=== PATIENT | male | born 2000 | race Caucasian/White ===

== ENCOUNTER → 2023-09-11 09:56 | Outpatient (REF) | payer BC, SELFPAY | LOC: HWRAD 09:56 | PROVIDERS: ATTENDING PHYSICIAN Family Medicine | DX: R61 Generalized hyperhidrosis (principal) | CPT/HCPCS: 76700 ==

== ENCOUNTER → 2023-11-12 16:38 | Outpatient (REF) | payer BC, SELFPAY | LOC: HWRAD 16:38 | PROVIDERS: ATTENDING PHYSICIAN Family Medicine | DX: M25.561 Pain in right knee (principal); M25.562 Pain in left knee; G89.29 Other chronic pain; R61 Generalized hyperhidrosis | CPT/HCPCS: 71046; 73564 ==

== ENCOUNTER → 2023-12-08 18:06 | Outpatient (REF) | payer BC, SELFPAY | LOC: MRI 3T 18:06 | PROVIDERS: ATTENDING PHYSICIAN Nurse Practitioner Family; FAMILY PHYSICIAN Family Medicine | DX: I87.8 Other specified disorders of veins (principal); G43.419 Hemiplegic migraine, intractable, without status migrainosus; H53.9 Unspecified visual disturbance | CPT/HCPCS: 70544; 70553; A9575 ==

== ENCOUNTER 2025-01-25 00:38 | Emergency (ER) | payer BC, SELFPAY ==
[2025-01-25 00:42] VITALS: BMI 23.9
[2025-01-25 00:43] VITALS: BP 135/84
[2025-01-25 01:00] VITALS: BP 145/100
[2025-01-25] MEDS: ZOFRAN 4 MG IV (01:01)
[2025-01-25] MEDS: DILAUDID 1 MG IV (01:02)
[2025-01-25 01:17] LABS: ALT (SGPT) 33 U/L (0-50); AST (SGOT) 36 U/L (17-59); Albumin 4.9 g/dl (3.5-5.0); Alkaline Phosphatase 66 U/L (38-126); Blood Urea Nitrogen 15 mg/dl (9-20); Calcium 9.9 mg/dl (8.4-10.2); Carbon Dioxide 27 mmol/L (22-30); Chloride 104 mmol/L (98-107); Estimated Creatinine Clearance 100 ml/min; Glucose 106 mg/dl (70-99); Lipase 94 U/L (23-300); Potassium 4.3 mmol/L (3.5-5.1); Sodium 140 mmol/L (135-145); Total Protein 7.5 g/dl (6.3-8.2); eGFR > 60.00
[2025-01-25 01:21] LABS: Hematocrit 41.2 % (39.0-52.0); Hemoglobin 14.2 g/dL (13.0-18.0); Mean Corp Hgb Conc. 34.5 g/dL (33.0-37.0); Mean Corpuscular Volume 85.5 fL (80.0-94.0); Nucleated Red Blood Cells % 0 % (-); Platelet Count 300 10^3/uL (130-400); Red Cell Dist. Width 12.5 % (11.5-14.5)
[2025-01-25 01:25] LABS: Urine Character Clear (Clear)
[2025-01-25 02:20] VITALS: BP 117/74
--- NOTE | 2025-01-25 02:46 | ED.GENMED ---
History of Present Illness
General
Chief Complaint: Abdominal Pain
Source: patient
Exam Limitations: none
Time Seen by Provider: 01/25/25 01:49
Nursing documentation reviewed up to this point in time: agreed with
History of Present Illness
History of Present Illness:
Note:
CHIEF COMPLAINT(S)
Right-sided abdominal pain.
HISTORY OF PRESENT ILLNESS
The patient is a 24-year-old male who presented with right-sided abdominal pain, which began around 11:30 AM to 12:00 PM. He reports the pain is localized and severe. The patient states, 'Pretty bad stomach pain on the right side.' He has a history
of kidney stones but has never passed one before. It appears the current stone has moved into the bladder, alleviating most of the pain, but he was advised that the stone could be passed by urination. He understands that increasing fluid intake can
aid in the process. The patient is informed to monitor for symptoms such as increased pain and difficulty urinating, which might indicate the stone is stuck. He inquired about pain medication and will be prescribed Diclofenac for pain management.
The patient is advised to use a urine strainer to catch the stone and monitor for any changes.
PAST MEDICAL HISTORY
History of kidney stones.
ADDITIONAL HISTORY OBTAINED FROM SOURCES OTHER THAN THE PATIENT
The patients family member has chronic issues with kidney stones as well.
SOCIAL HISTORY
The patient denies any previous episodes of passing a kidney stone and mentions familial occurrences.
PHYSICAL EXAM
General: Alert, no acute distress.
Skin: Warm, dry.
Head: Normocephalic, atraumatic.
Neck: Supple, trachea midline.
Eyes, Ears, Nose, Mouth, and Throat: Oral mucosa moist.
Cardiovascular: Normal peripheral perfusion, no edema.
Respiratory: Respirations are non-labored.
Gastrointestinal: Abdomen nondistended.
Back: Normal range of motion, normal alignment.
Musculoskeletal: Normal range of motion, normal strength.
Neurological: Alert and oriented to person, place, time, and situation, no focal neurological deficit observed.
Psychiatric: Cooperative, appropriate mood, and affect.
PROBLEM LIST
Acute Problems: Right-sided abdominal pain likely due to kidney stones.
PLAN
1. Prescribe Diclofenac for pain management.
2. Advise increased fluid intake to facilitate passing the stone.
3. Monitor urine using a strainer to observe when the stone passes.
4. Patient to return to ER if there is increased pain or difficulty urinating.
DIFFERENTIAL DIAGNOSIS
The Differential Diagnosis includes, in no particular order and is not limited to:
1. Kidney stone (Nephrolithiasis)
2. Appendicitis
3. Ureteral stone
4. Pyelonephritis
5. Gallstones (Cholelithiasis)
6. Hepatitis
7. Abdominal aortic aneurysm
8. Ovarian cyst (less likely due to gender)
9. Gastroenteritis
10. Constipation
Disposition:
SUMMARY OF ENCOUNTER
A 24-year-old male presented to the emergency department with right flank pain. A CT scan showed a 2-3 millimeter stone in the bladder, consistent with his symptoms. The patient has a family history of kidney stones. He was managed conservatively
since the stone is already in the bladder, which can be managed with increased fluid intake and pain management. The patient was comfortable at discharge after receiving a dose of tamsulosin (Flomax) and will continue pain management with a
prescription for diclofenac (Voltaren).
PLAN
1. Prescribe diclofenac for pain management.
2. Encourage increased fluid intake to help pass the kidney stone.
3. Advise monitoring urine to catch the stone using a urine strainer.
4. Instruct to return to the emergency department if increased pain or difficulty urinating occurs.
PATIENT EDUCATION AND COUNSELING
The patient was educated regarding the nature of kidney stones and how increased fluid intake aids in their passage. He was instructed to monitor for any changes in symptoms, such as increased pain or difficulty urinating, which could indicate the
stone is obstructed. He was also advised on the importance of using a urine strainer to catch and identify the stone when it passes.
FOLLOW-UP INSTRUCTIONS
Please follow up with the primary care provider as needed, and return to the emergency department if there is increased pain or difficulty urinating.
MEDICATION RECONCILIATION
- Administered during visit: Tamsulosin (Flomax), a dose provided in the ED.
- Prescribed upon discharge: Diclofenac (Voltaren).
MEDICAL DECISION MAKING
- Complexity of Data Reviewed: Chronic conditions affecting care include a history of kidney stones. The differential diagnosis considered includes kidney stone (nephrolithiasis), appendicitis, ureteral stone, pyelonephritis, gallstones
(cholelithiasis), hepatitis, and others.
- Data:
Category 1
The independent interpretation of the CT scan revealed a 2-3 millimeter kidney stone located in the bladder.
- Risk:
Prescription medication was prescribed for pain management. Consideration of admission/observation was assessed, but the patient was deemed safe for outpatient management with close follow-up. Re-evaluation and stability confirmed safety for
discharge.
DIAGNOSIS
- N20.1 Nephrolithiasis, right flank pain due to kidney stone.
- Z87.442 Family history of kidney stones.
Past History
Past History
ED Past Medical History: Other ([place] spotted fever) and Other (Migraines)
ED Past Surgical History: None
Social History
Tobacco: Non-smoker
Alcohol: None
Drug: None
Personal: Single
Living: with family
Employment: Employed ([employer])
Family History
Family History: Other; Negative Sudden
Course
Orders/Labs/Results
Orders:
Orders
01/25/25 00:56
Complete Blood Count/With Diff Urgent
Comprehensive Metabolic Panel Urgent
Lipase Urgent
01/25/25 00:57
HYDROmorphone [Dilaudid] 1 mg IV NOW STA
Ondansetron Injectable [Zofran] 4 mg IV NOW STA
01/25/25 01:11
Urinalysis Reflex To Culture Urgent
Date Specimen was Collected: 01/25/25
Time Specimen was Collected: 01:06
Urine Microscopic Reflex Cult Urgent
01/25/25 01:49
CT Abd/pel Without Iv Or Oral Urgent
Comment:
Reason For Exam: left flank pain
Abnormal Lab Results
01/25/25 01/25/25
00:56 01:11
Glucose 106 H mg/dl
(70-99)
Ur Occult Blood Reflex 3+ A
(Negative)
Urine RBC 11-15 A /HPF
(0-2)
Urine Albumin (Reflex) 1+ A
(Neg - Trace)
01/25/25 00:56
01/25/25 00:56
Vital Signs
Initial and Last Documented VS:
Initial Vital Signs
BP
135/84
01/25/25 00:43
Last Documented Vital Signs
Temp Pulse Resp BP Pulse Ox
98.2 F 88 12 117/74 100
01/25/25 00:47 01/25/25 02:20 01/25/25 02:20 01/25/25 02:20 01/25/25 02:20
*Radiology
Radiology exam reviewed: radiology read reviewed
*Pulse Oximetry
SaO2: 100
Oxygen Mode of Delivery: Room air
Patient hypoxic: no
*Critical Care Note
Total Time (30-74mins, 75-104mins- exclusive of procedures): Not Applicable
ED Attending Note
-
Portions of this chart may have been created with voice recognition software.� Occasional wrong word or��sound alike� substitutions may have occurred due to the inherent limitations of voice recognition software.
Discharge Plan
Departure
Patient Disposition: Home (Routine Discharge)
Date of Disposition: 01/25/25
Time of Disposition: 02:48
Patient with high blood pressure during this ER visit?: Yes
Condition: Good
Discharge Problem:
Kidney stone on right side
Instructions: How to Strain Your Urine, Flank pain - ED (DC), BLOOD PRESSURE
Prescriptions:
New
diclofenac sodium 75 mg tablet,delayed release (DR/EC)
75 mg PO BID Qty: 10 0RF
Referrals:
Thai Cuevas MD [Active, Urology] - As needed
Vero Escobar DO [Family Provider, Family Practice]
Activity Restrictions/Additional Instructions:
Your prescriptions were sent electronically to the pharmacy that you specified.
Thank You for choosing [facility].
It was a pleasure meeting you and taking part in your care. We hope for your continued healing and wellness.
Please read discharge instructions in their entirety. However, they are for general education and may not describe your exact diagnosis at discharge. Information on your ER visit and medical conditions were discussed with you along with appropriate
follow up information...
If indicated, please take your medications as instructed and indicated on discharge paperwork.
Please schedule a follow up appointment as directed. Call to schedule an appointment
Please return to the emergency department with ANY change in, persisting, or worsening of symptoms. If any of your symptoms do not improve, or persist, or become more severe within 6-12 hours, please return to the emergency department for further
care.
Please return to the emergency department if you develop a headache, neck pain/stiffness, fever greater than 100.4F, chest pain, shortness of breath, persistent nausea, vomiting, slurred speech, difficulty walking, numbness/tingling, weakness, signs
of infection or any other symptoms that are worrisome to you.
If you have any questions or concerns please do not hesitate to call the Hospital at .
Interventions
Interventions:
*Risk Screen - Suicide Last Done: 01/25/25 00:50
*General Assessment Last Done: 01/25/25 00:50
*Neglect/Abuse Screening Last Done: 01/25/25 00:50
*ED- Fall Risk Assessment Last Done: 01/25/25 00:50
*ED COVID-19 Vaccine History Last Done: 01/25/25 00:50
*ED Influenza Vaccine History Last Done: 01/25/25 00:50
KE-Okwkyp-Xcgotykhvw Assessment Last Done: 01/25/25 00:45
Discharge Date and Time
Print Language: KHMER
[2025-01-25 03:00] VITALS: BP 120/77
[2025-01-25] MEDS: FLOMAX 0.4 MG PO (03:21)
[2025-01-25] MEDS: PERCOCET 5/325 1 TABLET PO (03:21)
== END 2025-01-25 03:29 | disposition home or self-care (01) ==
LOC: EMR 00:38
PROVIDERS: EMERGENCY PHYSICIAN Student in an Organized Health Care Education/Training Program; FAMILY PHYSICIAN Family Medicine
DX: N20.0 Calculus of kidney (principal)
CPT/HCPCS: 96374; 96375; 99284; 74176; 80053; 81003; 81015; 83690; 85025